=== PATIENT | female | born 1935 | race Caucasian/White ===

== ENCOUNTER 2017-02-06 16:34 | Emergency (ER) | payer MEDICARE ==
[2017-02-06] MEDS ORDERED: DUONEB 0.5-3 MG/3 ml Neb IH ONE ×3 (16:45→16:50)
[2017-02-06] MEDS ORDERED: solu-MEDROL 125 MG IV ONE (16:50)
[2017-02-06] MEDS ORDERED: solu-MEDROL 125 MG ONE (16:58)
--- NOTE | 2017-02-06 16:58 | ERPHSYRPT ---
- History of Present Illness Time Seen by Provider: 02/06/17 16:49 Source: patient, EMS Exam Limitations: clinical condition Patient Subjective Stated Complaint: pt here for low o2 sats, increase swelling to both legs. Triage Nursing Assessment: pt arrived per ambulance with nonrebreather, sat 99% , resp labored, chest with crackles and wheezes, skin w/d pale, lower legs with dry patchy skin that is red/blue/purple in color and soles of feet blue in color , Physician History: mod shortness of breath and hypoxia today at the [place], O2sat 60%, poor historian, elevated temperature, swelling legs, no hx injury Timing/Duration: today Severity: moderate Associated Symptoms: shortness of breath, fever, No vomiting Allergies/Adverse Reactions: No Known Drug Allergies Allergy (Unverified 02/06/17 16:58) Home Medications: Albuterol 2.5 mg/3 ml Neb [Proventil 2.5 mg/3 ml Neb] 2.5 mg QID 02/06/17 [History] Buspirone HCl [Buspar] 10 mg DAILY 02/06/17 [History] Escitalopram Oxalate 10 mg [Lexapro 10 MG] 10 mg DAILY 02/06/17 [History] Furosemide 40 mg [Lasix 40 MG] 40 mg DAILY 02/06/17 [History] Metolazone 2.5 mg [Zaroxolyn 2.5 MG] 2.5 mg DAILY 02/06/17 [History] Omeprazole [Prilosec] 40 mg DAILY 02/06/17 [History] Oxybutynin Chloride 5 mg BID 02/06/17 [History] Potassium Chloride 20 Meq [Klor-Con 20 MEQ] 20 meq BID 02/06/17 [History] Risperidone 1 mg [Risperdal 1 MG] 1 mg DAILY 02/06/17 [History] Risperidone [Risperdal] 0.5 mg DAILY 02/06/17 [History] Rivaroxaban [Xarelto] 20 mg DAILY 02/06/17 [History] Tramadol HCl 50 mg QID 02/06/17 [History] Hx Influenza Vaccination/Date Given: Yes Hx Pneumococcal Vaccination/Date Given: Yes Immunizations Up to Date: Yes - Review of Systems Constitutional: Fever Respiratory: Dyspnea Psychological: Other (pt unable to provide ros at this time) - Past Medical History Respiratory History: CHF, COPD - Social History Smoking Status: Unknown if ever smoked Exposure to second hand smoke: No Patient Lives Alone: No - Female History Hx Last Menstrual Period: post - Nursing Vital Signs Nursing Vital Signs: Initial Vital Signs Pulse Rate 116 H 02/06/17 16:35 Respiratory Rate 28 H 02/06/17 16:35 Blood Pressure 114/52 02/06/17 16:35 O2 Sat by Pulse Oximetry 98 02/06/17 16:35 Pain Scale Pain Intensity 0 - Physical Exam General Appearance: mild distress Eye Exam: PERRL/EOMI Ears, Nose, Throat Exam: moist mucous membranes Neck Exam: normal inspection Respiratory Exam: wheezing Cardiovascular Exam: tachycardia Gastrointestinal/Abdomen Exam: soft, No rebound Extremity Exam: pelvis stable, swelling Neurologic Exam: alert, cooperative, normal mood/affect Skin Exam: warm, dry SpO2: 100 Oxygen Delivery: Non-rebreather - Course Nursing assessment & vital signs reviewed: Yes EKG Interpreted by Me: Other (st 109, no stemi) - Radiology Exams Chest X-ray Interpretation: Discussed w/ radiologist, Other (small bilateral effusions ) Ordered Tests: Active Orders 24 hr Category Date Time Status Repairer Handtools STAT Care 02/06/17 16:51 Active EKG-ER Only STAT Care 02/06/17 16:50 Active Lutz [Catheter-[place] Lutz] STAT Care 02/06/17 18:12 Active IV Insertion STAT Care 02/06/17 17:01 Active Oxygen-ED Only NASAL CANNULA 2 lpm Care 02/06/17 16:50 Active Oxygen-ED Only VENTI-MASK 50% Care 02/06/17 18:20 Active CHEST 1 VIEW (PORTABLE) Stat Exams 02/06/17 16:51 Completed BLOOD CULTURE Stat Lab 02/06/17 17:10 Received CBC W DIFF Stat Lab 02/06/17 16:50 Completed CMP Stat Lab 02/06/17 16:53 Completed CULTURE, THROAT Stat Lab 02/06/17 17:10 Received CULTURE,URINE Stat Lab 02/06/17 17:00 Received D-DIMER QUANTITATION Stat Lab 02/06/17 16:50 Completed Lactic Acid Stat Lab 02/06/17 16:49 Stop Req Lactic Acid Stat Lab 02/06/17 16:50 Completed Manual Differential NC Stat Lab 02/06/17 16:50 Completed NT PRO BNP Stat Lab 02/06/17 16:50 Completed PROTIME WITH INR Stat Lab 02/06/17 16:50 Completed STREP SCREEN-BETA A Stat Lab 02/06/17 17:10 Completed TROPONIN Q3H Lab 02/06/17 17:00 Completed TROPONIN Q3H Lab 02/06/17 20:00 Ordered TROPONIN Q3H Lab 02/06/17 23:00 Ordered TROPONIN Q3H Lab 02/07/17 02:00 Ordered TROPONIN Q3H Lab 02/07/17 05:00 Ordered UA W/ MICROSCOPIC Stat Lab 02/06/17 17:00 Completed VBG [VENOUS BLOOD GAS] Stat Lab 02/06/17 16:49 Completed Respiratory Nebulizer STAT RT 02/06/17 16:49 Completed Medication Summary Generic Name Dose Route Start Last Admin Trade Name Freq PRN Reason Stop Dose Admin Sodium Chloride 1,000 mls @ 999 mls/hr 02/06/17 17:15 02/06/17 18:16 Sodium Chloride 0.9% 1000 Ml IV 02/06/17 20:15 999 mls/hr .Q1H1M MARKO Administration Discontinued Medications Generic Name Dose Route Start Last Admin Trade Name Freq PRN Reason Stop Dose Admin Acetaminophen 650 mg 02/06/17 18:21 02/06/17 18:36 Tylenol 325 Mg PO 02/06/17 18:22 650 mg STAT STA Administration Acetaminophen Confirm 02/06/17 18:28 Tylenol 325 Mg Administered 02/06/17 18:29 Dose 650 mg .ROUTE .STK-MED ONE Albuterol/Ipratropium Confirm 02/06/17 16:45 Duoneb 0.5-3 Mg/3 Ml Neb Administered 02/06/17 16:46 Dose 3 ml IH .STK-MED ONE Albuterol/Ipratropium 3 ml 02/06/17 16:49 02/06/17 16:50 Duoneb 0.5-3 Mg/3 Ml Neb IH 02/06/17 16:50 3 ml STAT ONE Administration Albuterol/Ipratropium 3 ml 02/06/17 16:50 Duoneb 0.5-3 Mg/3 Ml Neb IH 02/06/17 16:51 STAT ONE Aspirin 324 mg 02/06/17 18:06 02/06/17 18:36 Baby Aspirin 81 Mg Chew PO 02/06/17 18:07 324 mg STAT ONE Administration Aspirin Confirm 02/06/17 18:28 Baby Aspirin 81 Mg Chew Administered 02/06/17 18:29 Dose 324 mg .ROUTE .STK-MED ONE Piperacillin Sod/Tazobactam Sod 3.375 gm in 100 mls @ 200 mls/hr 02/06/17 17: 01 02/06/17 17:08 Zosyn 3.375gm/100 Ml D5w IV 02/06/17 17:30 200 mls/hr STAT STA Administration Piperacillin Sod/Tazobactam Sod Confirm 02/06/17 17:07 Zosyn 3.375gm/100 Ml D5w Administered 02/06/17 17:08 Dose 3.375 gm in 100 mls @ ud IV .STK-MED ONE Methylprednisolone Sodium Succinate 125 mg 02/06/17 16:50 02/06/17 17:06 Solu-Medrol 125 Mg IV 02/06/17 16:51 125 mg STAT ONE Administration Methylprednisolone Sodium Succinate Confirm 02/06/17 16:58 Solu-Medrol 125 Mg Administered 02/06/17 16:59 Dose 125 mg .ROUTE .STK-MED ONE Lab/Rad Data: Laboratory Result Diagrams 02/06/17 16:50 02/06/17 16:53 Laboratory Results 02/06/17 02/06/17 02/06/17 Range/Units 17:10 17:00 17:00 WBC (4.0-10.5) K/mm3 RBC (4.1-5.4) M/mm3 Hgb (12.0-16.0) gm/dl Hct (35-47) % MCV (78-100) fl MCH (26-32) pg MCHC (32-36) g/dl RDW (11.5-14.0) % Plt Count (150-450) K/mm3 MPV (6-9.5) fl Segmented Neutrophils (36.0-66.0) % Band Neutrophils (0.0-2.0) % Lymphocytes (Manual) (24-44) % Monocytes (Manual) (0.0-12.0) % Differential Comment Atypical Lymphocytes % Platelet Estimate (NORMAL) Poikilocytosis Ovalocytes INR (0.8-3.0) D-Dimer (0-500) ng/mL VBG pH (7.32-7.42) VBG pCO2 at Pat Temp (42-55) mm/Hg VBG pO2 at Pat Temp (25-40) mm/Hg VBG HCO3 (22-28) meq/L VBG O2 Sat (Ted) (95-100) VBG Base Excess (-2.0-2.0) VBG Hemoglobin VBG Carboxyhemoglobin (0.0-6.9) % T HGB POC Potassium (3.5-5.1) Sodium (136-145) mEq/L Potassium (3.5-5.1) mEq/L Chloride (98-107) mEq/L Carbon Dioxide (21-32) mEq/L Anion Gap (5-15) MEQ/L BUN (9-20) mg/dL Creatinine (0.55-1.30) mg/dl Estimated GFR ML/MIN Glucose (70-110) MG/DL Lactic Acid (0.4-2.0) Calcium (8.5-10.1) mg/dL Total Bilirubin (0.2-1.0) mg/dL AST (15-37) U/L ALT (12-78) U/L Alkaline Phosphatase (46-116) U/L Troponin I 0.109 H* (0.000-0.056) ng/ml NT-Pro-B Natriuret Pep (0-450) pg/ml Serum Total Protein (6.4-8.2) gm/dL Albumin (3.4-5.0) g/dL Ur Collection Type CATH Urine Color YELLOW (YELLOW) Urine Appearance CLEAR (CLEAR) Urine pH 5.0 (5-6) Ur Specific [place] 1.015 (1.005-1.025) Urine Protein NEGATIVE (Negative) Urine Ketones NEGATIVE (NEGATIVE) Urine Blood TRACE NON-HEM (0-5) Christopher/ul Urine Nitrite NEGATIVE (NEGATIVE) Urine Bilirubin NEGATIVE (NEGATIVE) Urine Urobilinogen NORMAL (0-1) mg/dL Ur Leukocyte Esterase TRACE (NEGATIVE) Urine Microscopic RBC 0-2 (0-2) /HPF Urine Microscopic WBC 5-10 (0-5) /HPF Ur Epithelial Cells RARE (FEW) /HPF Urine Bacteria FEW (NEGATIVE) /HPF Hyaline Casts 2-5 (0-2) /LPF Urine Yeast RARE (NEGATIVE) /HPF Urine Culture Reflexed YES (NO) Urine Glucose NEGATIVE (NEGATIVE) mg/dL Streptococcus Screen NEGATIVE (Negative) Specimen Received [id number]/[id number] 02/06/17 02/06/17 Range/Units 16:53 16:50 16:50 WBC (4.0-10.5) K/mm3 RBC (4.1-5.4) M/mm3 Hgb (12.0-16.0) gm/dl Hct (35-47) % MCV (78-100) fl MCH (26-32) pg MCHC (32-36) g/dl RDW (11.5-14.0) % Plt Count (150-450) K/mm3 MPV (6-9.5) fl Segmented Neutrophils (36.0-66.0) % Band Neutrophils (0.0-2.0) % Lymphocytes (Manual) (24-44) % Monocytes (Manual) (0.0-12.0) % Differential Comment Atypical Lymphocytes % Platelet Estimate (NORMAL) Poikilocytosis Ovalocytes INR 2.52 (0.8-3.0) D-Dimer 4267 H* (0-500) ng/mL VBG pH (7.32-7.42) VBG pCO2 at Pat Temp (42-55) mm/Hg VBG pO2 at Pat Temp (25-40) mm/Hg VBG HCO3 (22-28) meq/L VBG O2 Sat (Ted) (95-100) VBG Base Excess (-2.0-2.0) VBG Hemoglobin VBG Carboxyhemoglobin (0.0-6.9) % T HGB POC Potassium (3.5-5.1) Sodium 138 (136-145) mEq/L Potassium 3.6 (3.5-5.1) mEq/L Chloride 100 (98-107) mEq/L Carbon Dioxide 30.5 (21-32) mEq/L Anion Gap 10.9 (5-15) MEQ/L BUN 43 H (9-20) mg/dL Creatinine 2.06 H (0.55-1.30) mg/dl Estimated GFR 25 ML/MIN Glucose 167 H (70-110) MG/DL Lactic Acid (0.4-2.0) Calcium 8.2 L (8.5-10.1) mg/dL Total Bilirubin 0.40 (0.2-1.0) mg/dL AST 33 (15-37) U/L ALT 14 (12-78) U/L Alkaline Phosphatase 66 (46-116) U/L Troponin I (0.000-0.056) ng/ml NT-Pro-B Natriuret Pep 917 H (0-450) pg/ml Serum Total Protein 5.9 L (6.4-8.2) gm/dL Albumin 2.7 L (3.4-5.0) g/dL Ur Collection Type Urine Color (YELLOW) Urine Appearance (CLEAR) Urine pH (5-6) Ur Specific [place] (1.005-1.025) Urine Protein (Negative) Urine Ketones (NEGATIVE) Urine Blood (0-5) Christopher/ul Urine Nitrite (NEGATIVE) Urine Bilirubin (NEGATIVE) Urine Urobilinogen (0-1) mg/dL Ur Leukocyte Esterase (NEGATIVE) Urine Microscopic RBC (0-2) /HPF Urine Microscopic WBC (0-5) /HPF Ur Epithelial Cells (FEW) /HPF Urine Bacteria (NEGATIVE) /HPF Hyaline Casts (0-2) /LPF Urine Yeast (NEGATIVE) /HPF Urine Culture Reflexed (NO) Urine Glucose (NEGATIVE) mg/dL Streptococcus Screen (Negative) Specimen Received 02/06/17 02/06/17 02/06/17 Range/Units 16:50 16:50 16:49 WBC 4.6 (4.0-10.5) K/mm3 RBC 4.01 L (4.1-5.4) M/mm3 Hgb 11.8 L (12.0-16.0) gm/dl Hct 38.0 (35-47) % MCV 94.8 (78-100) fl MCH 29.4 (26-32) pg MCHC 31.1 L (32-36) g/dl RDW 13.7 (11.5-14.0) % Plt Count 93 L (150-450) K/mm3 MPV 10.9 H (6-9.5) fl Segmented Neutrophils 54 (36.0-66.0) % Band Neutrophils 4 H (0.0-2.0) % Lymphocytes (Manual) 25 (24-44) % Monocytes (Manual) 4 (0.0-12.0) % Differential Comment ABNORMAL Atypical Lymphocytes 13 % Platelet Estimate NORMAL (NORMAL) Poikilocytosis 1+ Ovalocytes 1+ INR (0.8-3.0) D-Dimer (0-500) ng/mL VBG pH 7.35 (7.32-7.42) VBG pCO2 at Pat Temp 64 H* (42-55) mm/Hg VBG pO2 at Pat Temp 23 L (25-40) mm/Hg VBG HCO3 35.3 H* (22-28) meq/L VBG O2 Sat (Ted) 48.9 L (95-100) VBG Base Excess 7.6 H (-2.0-2.0) VBG Hemoglobin 12.6 VBG Carboxyhemoglobin 2.8 (0.0-6.9) % T HGB POC Potassium 3.4 L (3.5-5.1) Sodium (136-145) mEq/L Potassium (3.5-5.1) mEq/L Chloride (98-107) mEq/L Carbon Dioxide (21-32) mEq/L Anion Gap (5-15) MEQ/L BUN (9-20) mg/dL Creatinine (0.55-1.30) mg/dl Estimated GFR ML/MIN Glucose (70-110) MG/DL Lactic Acid 1.2 (0.4-2.0) Calcium (8.5-10.1) mg/dL Total Bilirubin (0.2-1.0) mg/dL AST (15-37) U/L ALT (12-78) U/L Alkaline Phosphatase (46-116) U/L Troponin I (0.000-0.056) ng/ml NT-Pro-B Natriuret Pep (0-450) pg/ml Serum Total Protein (6.4-8.2) gm/dL Albumin (3.4-5.0) g/dL Ur Collection Type Urine Color (YELLOW) Urine Appearance (CLEAR) Urine pH (5-6) Ur Specific [place] (1.005-1.025) Urine Protein (Negative) Urine Ketones (NEGATIVE) Urine Blood (0-5) Christopher/ul Urine Nitrite (NEGATIVE) Urine Bilirubin (NEGATIVE) Urine Urobilinogen (0-1) mg/dL Ur Leukocyte Esterase (NEGATIVE) Urine Microscopic RBC (0-2) /HPF Urine Microscopic WBC (0-5) /HPF Ur Epithelial Cells (FEW) /HPF Urine Bacteria (NEGATIVE) /HPF Hyaline Casts (0-2) /LPF Urine Yeast (NEGATIVE) /HPF Urine Culture Reflexed (NO) Urine Glucose (NEGATIVE) mg/dL Streptococcus Screen (Negative) Specimen Received - Progress Progress: improved Progress Note: 02/06/17 18:16 pt awake conversant on 2 liters NC, denies chest pain pt accepted for transfer at her [facility] by Dr Solomon Counseled pt/family regarding: lab results, diagnosis, rad results - Departure Time of Disposition: 18:18 Departure Disposition: Transfer Clinical Impression: Elevated troponin, Hypoxia Condition: Stable Critical Care Time: No Referrals: KIERAN BARDALES [Primary Care Provider] -
[2017-02-06 16:59] LABS: Mean Cell Volume 94.8 fl (78-100); Mean Corpuscular Hemoglobin 29.4 pg (26-32); Mean Platelet Volume 10.9 fl (6-9.5); Platelet Count 93 K/mm3 (150-450); Red Blood Count 4.01 M/mm3 (4.1-5.4); Red Cell Distribution Width 13.7 % (11.5-14.0); White Blood Count 4.6 K/mm3 (4.0-10.5)
[2017-02-06] MEDS ORDERED: Zosyn 3.375GM/100 Ml D5W 3.375 GM/100 ML IVPB IV STA (17:01)
[2017-02-06] MEDS ORDERED: Sodium Chloride 0.9% 1000 ML 1,000 ML ONE ×2 (17:07→18:11)
[2017-02-06] MEDS ORDERED: Zosyn 3.375GM/100 Ml D5W 3.375 GM/100 ML IVPB IV ONE (17:07)
[2017-02-06 17:08] LABS: INR 2.52 (0.8-3.0); PROTIME 28.3 SECONDS (9.95-12.35)
[2017-02-06] MEDS: Sodium Chloride 0.9% 1000 ML 1,000 ML IV SCH ×2 (17:08→18:16)
--- NOTE | 2017-02-06 17:08 | XRAY ---
Indication: Dyspnea. Comparison: None Portable chest underinflated with marked right hemidiaphragm elevation and adjacent atelectasis. Also small bibasilar effusions. Heart is not enlarged for AP portable technique. Bony thorax intact with osteopenia, degenerative changes, and sternotomy wires.
[2017-02-06 17:12] LABS: VBG BASE EXCESS 7.6 (-2.0-2.0); VBG CARBOXYHEMOGLOBIN 2.8 % T HGB (0.0-6.9); VBG HCO3- 35.3 meq/L (22-28); VBG HEMOGLOBIN 12.6; VBG O2 SATURATION 48.9 (95-100); VBG POTASSIUM 3.4 (3.5-5.1); VBG pH 7.35 (7.32-7.42)
[2017-02-06 17:57] LABS: ATYPICAL LYMPHS 13 %; BAND 4 % (0.0-2.0); Total Cells Counted 100
[2017-02-06 17:58] LABS: Poikilocytosis 1+
[2017-02-06 17:59] LABS: Ovalocytes 1+; Platelet Estimate NORMAL (NORMAL)
[2017-02-06] MEDS ORDERED: BABY ASPIRIN 81 MG CHEW PO ONE (18:06)
[2017-02-06 18:16] LABS: Leukocyte Esterase TRACE (NEGATIVE)
[2017-02-06 18:17] LABS: ADD URINE CULTURE? YES (NO); Bacteria FEW /HPF (NEGATIVE); Bilirubin NEGATIVE (NEGATIVE); Blood TRACE NON-HEM Ery/ul (0-5); COMPLETE URINE MICROSCOPIC? YES; Collection Type CATH; Epithelial Cells RARE /HPF (FEW); Glucose NEGATIVE (NEGATIVE); Yeast RARE /HPF (NEGATIVE)
[2017-02-06] MEDS ORDERED: TYLENOL 325 MG PO STA (18:21)
[2017-02-06] MEDS ORDERED: BABY ASPIRIN 81 MG CHEW ONE (18:28)
[2017-02-06] MEDS ORDERED: TYLENOL 325 MG ONE (18:28)
[2017-02-06 18:38] VITALS: BP 112/71; PULSE 97
[2017-02-06 18:39] LABS: ALBUMIN 2.7 g/dL (3.4-5.0); ANION GAP 10.9 MEQ/L (5-15); BILIRUBIN,TOTAL 0.4 mg/dL (0.2-1.0); Carbon Dioxide 30.5 mEq/L (21-32); Potassium 3.6 mEq/L (3.5-5.1); Total Protein 5.9 gm/dL (6.4-8.2)
[2017-02-06] MEDS ORDERED: Heparin 5000 UNITS/0.5 ML (HIGH RISK MED) IV ONE (18:46)
[2017-02-06 18:48] VITALS: O2SAT 100
[2017-02-06] MEDS ORDERED: Heparin 5000 UNITS/0.5 ML (HIGH RISK MED) ONE (19:06)
== END 2017-02-06 19:26 | disposition short-term general hospital (02) ==
LOC: ED 16:34
DX: R79.89 Other specified abnormal findings of blood chemistry (principal); R09.02 Hypoxemia; Z79.899 Other long term (current) drug therapy; I50.9 Heart failure, unspecified; J44.9 Chronic obstructive pulmonary disease, unspecified; Z79.01 Long term (current) use of anticoagulants; R50.9 Fever, unspecified
CPT/HCPCS: 36000; 36415; 51702; 71010; 80053; 81000; 82805; 83605; 83880; 84484; 85025; 85379; 85610; 87040; 87070; 87086; 87430; 93005; 93041; 94640; 96360; 96361; 96365; 96374; 96375; 99285; J1644; J2543; J2930; A9270-GY